=== PATIENT | female | born 2000 | race Caucasian/White ===

== ENCOUNTER 2018-09-03 21:39 | Emergency (ER) | payer OTHER, BC ==
[~2018-09-03] VITALS: Ht 162.6 cm; Wt 70.3 kg
[2018-09-03] MEDS ORDERED: MEDROXYPROGESTE10 MG PO (21:52)
[2018-09-03] MEDS ORDERED: ALDACTONE25 MG PO (21:52)
--- NOTE | 2018-09-04 07:59 | EKG ---
[facility] [address] [facility] [place], [place] [address] Signed Normal sinus rhythm Normal ECG No previous ECGs available Confirmed by SAUL DIAZ MD [id number] on 09/04/2018 7:59:12 AM Electronically Signed By: SAUL DIAZ MD 09/04/18 0759 PATIENT NAME: JEFF LYON Electrocardiogram DATE OF : [birth year] PHYSICIAN: SAUL DIAZ MD REPORT #: [id number] REPORT IS CONFIDENTIAL AND NOT TO BE RELEASED WITHOUT AUTHORIZATION
== END 2018-09-03 23:54 | disposition home or self-care (01) ==
LOC: ED 21:39
DX: K52.9 Noninfective gastroenteritis and colitis, unspecified (principal); Z79.899 Other long term (current) drug therapy
CPT/HCPCS: 80053; 81001; 83735; 84703; 85025; 93005; 93010; 96361; 96374; 96375; 99284-25; J2405; J7030